=== PATIENT | male | born 1945 | race Caucasian/White ===

== ENCOUNTER 2016-07-05 09:09 | Emergency (ER) | payer OTHER ==
[~2016-07-05] VITALS: Ht 162.6 cm; Wt 83.0 kg
[~2016-07-05 09:09] MED LIST: COLACE100 MG PO; Ceftin PO; Dulcolax PR; FLOMAX0.4 MG PO; FORTICAL,200 INTUNI NS; METAMUCIL1 EACH PO; MIRALAX17 GM PO; OS-CAL 500+D C1 EAC1 PO; SYNTHROID150 MCG PO; Theragran W/Iron,MVI PO; Tylenol Regular Stre PO
[2016-07-05 13:37] VITALS: BP 137/69
== END 2016-07-05 13:37 | disposition home or self-care (01) ==
LOC: EME → EDBD 09:09 → EME 09:09
PROC: 0JQ13ZZ Repair Face Subcutaneous Tissue and Fascia, Percutaneous Approach (ICD-10-PCS; principal; 2016-07-05)
DX: S09.90XA Unspecified injury of head, initial encounter (principal); S01.112A Laceration without foreign body of left eyelid and periocular area, initial encounter; M25.522 Pain in left elbow; M25.532 Pain in left wrist; W17.89XA Other fall from one level to another, initial encounter; F79 Unspecified intellectual disabilities; E03.9 Hypothyroidism, unspecified
CPT/HCPCS: 70450; 72125; 73080; 73110; 99281; 99284

== ENCOUNTER → 2016-12-12 | Outpatient (CLI) | payer OTHER | END | disposition home or self-care (01) | DX: R13.13 Dysphagia, pharyngeal phase (principal); R05 Cough; R63.4 Abnormal weight loss | CPT/HCPCS: 92611 GN; G8996 GN; G8997 GN; G8998 GN ==

== ENCOUNTER → 2017-01-09 | Outpatient (CLI) | payer MEDICARE, OTHER ==
[~2017-01-09] MED LIST changes: +DAILY MULTIVIT1 EAC3 PO; +MYCOSTATIN1 APPLICAT TP; +OYSTERCAL-D 501 EACH PO; +ROBAFEN DM COU118 M1 PO; +SALINE NASAL M126 ML BOTH NARES; +TYLENOL REGULA325 MG PO; -Theragran W/Iron,MVI PO; -Tylenol Regular Stre PO
== END | disposition home or self-care (01) ==
LOC: CDC 08:43
DX: Z01.810 Encounter for preprocedural cardiovascular examination (principal); I49.1 Atrial premature depolarization; R94.31 Abnormal electrocardiogram [ECG] [EKG]
CPT/HCPCS: 93000

== ENCOUNTER 2017-06-10 07:35 | Inpatient (IN) | payer OTHER ==
[~2017-06-10] VITALS: Ht 167.6 cm; Wt 49.0 kg
[2017-06-10] VITALS (9 sets, daily range): BP systolic 90–120; BP diastolic 55–79
[~2017-06-10 07:35] MED LIST changes: +CACARB500L GT; -DAILY MULTIVIT1 EAC3 PO; +DULCOLAX10 MG PR; -Dulcolax PR; +FLOMAX0.4 MG GT; -FLOMAX0.4 MG PO; +MIRALAX17 GM GT; -MIRALAX17 GM PO; +MULTIVITAM9 MG/15 M1 GT; +OCEAN NASAL 0.645 ML BOTH NARES; -OYSTERCAL-D 501 EACH PO; -SALINE NASAL M126 ML BOTH NARES; +SYNTHROID100 MCG GT; +TYLENOL REGULA325 MG GT; -TYLENOL REGULA325 MG PO
[2017-06-10 08:08] LABS: BASE EXCESS -11.7 mEq/L (-3 to +3); BICARBONATE 17.9 mEq/L (22-26); CARBOXY HGB 1.5 % (0-5); COMMENTS - BLOOD GASES A+C+; DEVICE 840 PB; FI02 100 %; MECHANICAL RATE 12 resp/min; METHEMOGLOBIN 1.1 % (0-1.5); MODE AC; O2 FLOW 40 L/MIN; PCO2 55 mm Hg (35-45); PO2 46 mm Hg (80-100); SITE LR; TOTAL RESP RATE 26 resp/min; pH 7.12 (7.35-7.45)
[2017-06-10 08:09] LABS: PEEP 6 CM/H20; TIDAL VOLUME 450 ML
[2017-06-10 08:20] LABS: BASOPHIL (%) 0.3 % (0-1); BASOPHIL COUNT 0.1 K/uL (0-0.1); EOSINOPHIL (%) 3.9 % (0-5); EOSINOPHIL COUNT 0.7 K/uL (0-0.3); HEMOGLOBIN 12.4 G/DL (12.5-16.6); IMMATURE GRANULOCYTE (%) 1.5 % (0.0-0.7); LYMPHOCYTE (%) 31.4 % (15-42); LYMPHOCYTE COUNT 5.8 K/uL (1.0-2.8); MCH 34.1 PG (29.0-34.0); MCHC 32.6 G/DL (30.0-36.0); MCV 104.4 FL (86-99); MONOCYTE (%) 6.2 % (3-12); MONOCYTE COUNT 1.1 K/uL (0-0.8); NEUTROPHIL (%) 56.7 % (45-76); NEUTROPHIL COUNT 10.4 K/uL (1.8-6.4); PLATELET COUNT 303 K/uL (156-360); RBC DIS.WIDTH-CV 13.4 % (11.8-14.6); RBC DIS.WIDTH-SD 52.3 % (39-53); RED BLOOD COUNT 3.64 M/uL (4.00-5.50); WHITE BLOOD COUNT 18.3 K/uL (4.1-10.2)
[2017-06-10 08:25] LABS: INTER. NORMALIZED RATIO 1.1
[2017-06-10 08:28] LABS: PTT 32.5 SEC (25-37)
[2017-06-10 08:29] LABS: CHLORIDE 98 mEq/L (99-109); POTASSIUM 4.9 mEq/L (3.7-5.4); SODIUM 130 mEq/L (136-147)
[2017-06-10 08:30] LABS: GLUCOSE 359 mg/dL (70-99)
[2017-06-10 08:34] LABS: CREATININE 0.8 mg/dL (0.6-1.3); GFR ESTIMATE (CALCULATED) > 59 mL/min/ (58.99-99999)
[2017-06-10 08:35] LABS: UREA NITROGEN (BUN) 35 mg/dL (9-23)
[2017-06-10 08:43] LABS: TROP-I INTERPRETATION NEGATIVE; TROPONIN-I 0.04 ng/mL (0.0-0.30)
[2017-06-10 08:54] LABS: BASE EXCESS -10.1 mEq/L (-3 to +3); BICARBONATE 17.6 mEq/L (22-26); CARBOXY HGB 0.4 % (0-5); METHEMOGLOBIN 0 % (0-1.5); PO2 49 mm Hg (80-100)
[2017-06-10 08:55] LABS: COMMENTS - BLOOD GASES A+C+; DEVICE 840 PB; FI02 100 %; MECHANICAL RATE 10 resp/min; MODE AC; O2 FLOW 40 L/MIN; PCO2 45 mm Hg (35-45); SITE LR; TOTAL RESP RATE 24 resp/min
[2017-06-10 08:56] LABS: PEEP 6 CM/H20; TIDAL VOLUME 450 ML
[2017-06-10 10:07] LABS: BASE EXCESS -2.1 mEq/L (-3 to +3); CARBOXY HGB 2.3 % (0-5); METHEMOGLOBIN 0.9 % (0-1.5); PCO2 41 mm Hg (35-45)
[2017-06-10 10:08] LABS: BICARBONATE 23.2 mEq/L (22-26); COMMENTS - BLOOD GASES A+C+; DEVICE 840 PB; FI02 100 %; MECHANICAL RATE 24 resp/min; MODE AC; O2 FLOW 50 L/MIN; PEEP 8 CM/H20; PO2 84 mm Hg (80-100); SITE LR; TIDAL VOLUME 450 ML; TOTAL RESP RATE 25 resp/min; pH 7.36 (7.35-7.45)
[2017-06-10] MEDS ORDERED: FOLIC ACID1 MG GT (10:20)
[2017-06-10] MEDS ORDERED: FEOSOL300 MG/5 M GT (10:25)
[2017-06-10] MEDS ORDERED: SODIUM CHLORIDE1 G1 GT (10:25)
[2017-06-10 13:27] LABS: BASE EXCESS -4.8 mEq/L (-3 to +3); BICARBONATE 19.2 mEq/L (22-26); CARBOXY HGB 1.4 % (0-5); METHEMOGLOBIN 1.6 % (0-1.5)
[2017-06-10 13:28] LABS: COMMENTS - BLOOD GASES C+; DEVICE VENT; FI02 80 %; MECHANICAL RATE 24 resp/min; MODE AC; PCO2 31 mm Hg (35-45); PEEP 8 CM/H20; PO2 140 mm Hg (80-100); SITE A LINE; TIDAL VOLUME 450 ML; TOTAL RESP RATE 24 resp/min
[2017-06-10 16:02] LABS: INTER. NORMALIZED RATIO 1.2
[2017-06-10 16:05] LABS: PTT 27.2 SEC (25-37)
[2017-06-11] VITALS (9 sets, daily range): BP systolic 55–127; BP diastolic 44–82
[2017-06-11 05:11] LABS: BASOPHIL (%) 0.1 % (0-1); EOSINOPHIL (%) 0.1 % (0-5); HEMATOCRIT 28.9 % (38.0-50.0); IMMATURE GRANULOCYTE (%) 0.5 % (0.0-0.7); LYMPHOCYTE (%) 5.8 % (15-42); LYMPHOCYTE COUNT 0.7 K/uL (1.0-2.8); MCH 33.6 PG (29.0-34.0); MCHC 33.9 G/DL (30.0-36.0); MONOCYTE (%) 6.9 % (3-12); MONOCYTE COUNT 0.8 K/uL (0-0.8); NEUTROPHIL (%) 86.6 % (45-76); NEUTROPHIL COUNT 9.7 K/uL (1.8-6.4); RBC DIS.WIDTH-CV 13.7 % (11.8-14.6); RBC DIS.WIDTH-SD 50.2 % (39-53); RED BLOOD COUNT 2.92 M/uL (4.00-5.50); WHITE BLOOD COUNT 11.2 K/uL (4.1-10.2)
[2017-06-11 05:21] LABS: ALBUMIN 2.7 g/dL (3.2-4.8); POTASSIUM 4.3 mEq/L (3.7-5.4)
[2017-06-11 05:22] LABS: MAGNESIUM 1.7 mg/dL (1.3-2.7)
[2017-06-11 05:23] LABS: CHLORIDE 113 mEq/L (99-109); HEMOGLOBIN 9.8 G/DL (12.5-16.6); SODIUM 139 mEq/L (136-147)
[2017-06-11 05:26] LABS: GLUCOSE 109 mg/dL (70-99); TOTAL BILIRUBIN 1.2 mg/dL (0.0-1.0)
[2017-06-11 05:27] LABS: ALKALINE PHOSPHATASE 90 IU/L (3-129); PHOSPHORUS 3.4 mg/dL (2.5-4.9)
[2017-06-11 05:28] LABS: CREATININE 0.7 mg/dL (0.6-1.3); GFR ESTIMATE (CALCULATED) > 59 mL/min/ (58.99-99999)
[2017-06-11 05:29] LABS: AST (GOT) 103 IU/L (2-34); UREA NITROGEN (BUN) 31 mg/dL (9-23)
[2017-06-11 05:31] LABS: ALT (GPT) 110 IU/L (3-49)
[2017-06-11 05:57] LABS: PLAT.SUFFICIENCY DECREASED
[2017-06-11 05:58] LABS: PLATELET COUNT 146 K/uL (156-360)
[2017-06-11 06:11] LABS: BASE EXCESS -4.3 mEq/L (-3 to +3); CARBOXY HGB 1.5 % (0-5); METHEMOGLOBIN 1.6 % (0-1.5); PCO2 28 mm Hg (35-45); pH 7.44 (7.35-7.45)
[2017-06-11 06:12] LABS: COMMENTS - BLOOD GASES C+; DEVICE VENT; FI02 40 %; MECHANICAL RATE 24 resp/min; MODE AC; PEEP 5 CM/H20; PO2 111 mm Hg (80-100); SITE A-LINE; TIDAL VOLUME 450 ML; TOTAL RESP RATE 24 resp/min
[2017-06-11 06:18] LABS: VANCOMYCIN, TROUGH 8.3 MCG/ML (10-20)
[2017-06-12 01:00] VITALS: BP 128/57
[2017-06-12 02:00] VITALS: BP 101/48
[2017-06-12 04:01] VITALS: BP 99/42
[2017-06-12 05:34] LABS: CHLORIDE 116 MEQ/L (99-109); CREATININE 0.6 MG/DL (0.6-1.3); GFR ESTIMATE (CALCULATED) > 59 mL/min/ (58.99-99999); GLUCOSE 86 mg/dL (70-99); MAGNESIUM 1.7 mg/dl (1.3-2.7); POTASSIUM 3.3 MEQ/L (3.7-5.4); SODIUM 140 MEQ/L (136-147); UREA NITROGEN (BUN) 24 mg/dL (9-23)
[2017-06-12 05:47] LABS: HEMATOCRIT 23.3 % (38.0-50.0); MCH 32.8 PG (29.0-34.0); MCHC 32.6 G/DL (30.0-36.0); MCV 100.4 FL (86-99); RBC DIS.WIDTH-CV 14.3 % (11.8-14.6); RBC DIS.WIDTH-SD 52.6 % (39-53); WHITE BLOOD COUNT 6.3 K/uL (4.1-10.2)
[2017-06-12 05:49] LABS: HEMOGLOBIN 7.6 G/DL (12.5-16.6); PLATELET COUNT 102 K/uL (156-360); RED BLOOD COUNT 2.32 M/uL (4.00-5.50)
[2017-06-12 11:47] LABS: HEMATOLOGY COMMENT 1 SMEAR COMPATIBLE; PLAT.SUFFICIENCY DECREASED
[2017-06-12 14:46] VITALS: BP 115/65
[2017-06-12 16:01] VITALS: BP 115/59
[2017-06-13 08:01] VITALS: BP 108/59
[2017-06-13 09:00] VITALS: BP 108/59
[2017-06-13 09:16] VITALS: BP 110/72
[2017-06-13 09:25] VITALS: BP 110/72
[2017-06-13 12:41] LABS: BASOPHIL (%) 0.3 % (0-1); EOSINOPHIL (%) 0.7 % (0-5); EOSINOPHIL COUNT 0.1 K/uL (0-0.3); HEMATOCRIT 27.9 % (38.0-50.0); HEMOGLOBIN 8.8 G/DL (12.5-16.6); IMMATURE GRANULOCYTE (%) 0.5 % (0.0-0.7); LYMPHOCYTE (%) 9.4 % (15-42); LYMPHOCYTE COUNT 0.8 K/uL (1.0-2.8); MCH 32.8 PG (29.0-34.0); MCHC 31.5 G/DL (30.0-36.0); MCV 104.1 FL (86-99); MONOCYTE (%) 9.8 % (3-12); MONOCYTE COUNT 0.9 K/uL (0-0.8); NEUTROPHIL (%) 79.3 % (45-76); NEUTROPHIL COUNT 6.9 K/uL (1.8-6.4); PLATELET COUNT 125 K/uL (156-360); RBC DIS.WIDTH-CV 14.4 % (11.8-14.6); RED BLOOD COUNT 2.68 M/uL (4.00-5.50); WHITE BLOOD COUNT 8.7 K/uL (4.1-10.2)
[2017-06-13 13:49] LABS: ALBUMIN 2.2 G/DL (3.2-4.8); ALKALINE PHOSPHATASE 70 IU/L (3-129); ALT (GPT) 56 IU/L (3-49); AST (GOT) 31 IU/L (2-34); CHLORIDE 119 MEQ/L (99-109); CREATININE 0.6 MG/DL (0.6-1.3); GFR ESTIMATE (CALCULATED) > 59 mL/min/ (58.99-99999); SODIUM 143 MEQ/L (136-147); TOTAL BILIRUBIN 0.9 MG/DL (0.0-1.0); TOTAL PROTEIN 4.9 G/DL (6.4-8.3); UREA NITROGEN (BUN) 28 mg/dL (9-23)
[2017-06-13 13:53] LABS: GLUCOSE 46 mg/dL (70-99); PHOSPHORUS 3.4 mg/dL (2.5-4.9); POTASSIUM 4.1 MEQ/L (3.7-5.4)
[2017-06-13 15:08] LABS: BASE EXCESS -16.8 mEq/L (-3 to +3); CARBOXY HGB 1.6 % (0-5); METHEMOGLOBIN 1.5 % (0-1.5); PO2 116 mm Hg (80-100)
[2017-06-13 15:09] LABS: BICARBONATE 8.5 mEq/L (22-26); DEVICE 840; FI02 30 %; MODE SPONT; PCO2 19 mm Hg (35-45); PEEP 5 CM/H20; PRES. SUPPORT 10 CM/H2O; SITE R ALINE; TOTAL RESP RATE 30 resp/min; pH 7.26 (7.35-7.45)
[2017-06-13 16:01] VITALS: BP 114/62
[2017-06-14] VITALS (17 sets, daily range): BP systolic 108–140; BP diastolic 54–72
[2017-06-14 06:53] LABS: BASOPHIL (%) 0.2 % (0-1); EOSINOPHIL (%) 0.7 % (0-5); HEMATOCRIT 27.1 % (38.0-50.0); HEMOGLOBIN 9.2 G/DL (12.5-16.6); IMMATURE GRANULOCYTE (%) 0.5 % (0.0-0.7); LYMPHOCYTE COUNT 0.5 K/uL (1.0-2.8); MCH 33.6 PG (29.0-34.0); MCHC 33.9 G/DL (30.0-36.0); MONOCYTE (%) 12.2 % (3-12); MONOCYTE COUNT 0.7 K/uL (0-0.8); NEUTROPHIL (%) 77.4 % (45-76); NEUTROPHIL COUNT 4.6 K/uL (1.8-6.4); PLATELET COUNT 123 K/uL (156-360); RBC DIS.WIDTH-CV 13.8 % (11.8-14.6); RBC DIS.WIDTH-SD 49.6 % (39-53); RED BLOOD COUNT 2.74 M/uL (4.00-5.50); WHITE BLOOD COUNT 5.9 K/uL (4.1-10.2)
[2017-06-14 07:04] LABS: MCV 98.9 FL (86-99)
[2017-06-14 07:18] LABS: ALKALINE PHOSPHATASE 60 IU/L (3-129); ALT (GPT) 43 IU/L (3-49); AST (GOT) 19 IU/L (2-34); CHLORIDE 114 MEQ/L (99-109); CREATININE 0.6 MG/DL (0.6-1.3); GFR ESTIMATE (CALCULATED) > 59 mL/min/ (58.99-99999); MAGNESIUM 1.8 mg/dl (1.3-2.7); PHOSPHORUS 2.3 mg/dL (2.5-4.9); POTASSIUM 3.3 MEQ/L (3.7-5.4); SODIUM 146 MEQ/L (136-147); TOTAL PROTEIN 4.5 G/DL (6.4-8.3); UREA NITROGEN (BUN) 21 mg/dL (9-23)
[2017-06-14 07:23] LABS: GLUCOSE 137 mg/dL (70-99); TOTAL BILIRUBIN 1.2 MG/DL (0.0-1.0)
[2017-06-14 11:37] LABS: BASE EXCESS -0.8 mEq/L (-3 to +3); BICARBONATE 21.8 mEq/L (22-26); COMMENTS - BLOOD GASES VENOUS SAMPLE; PCO2 28 mm Hg (35-45); PO2 < 32 mm Hg (80-100); SITE CENTAL LINE
[2017-06-15] VITALS (23 sets, daily range): BP systolic 84–134; BP diastolic 40–94
[2017-06-15 04:36] LABS: BASOPHIL (%) 0.2 % (0-1); EOSINOPHIL (%) 1.4 % (0-5); EOSINOPHIL COUNT 0.1 K/uL (0-0.3); HEMATOCRIT 24.7 % (38.0-50.0); HEMOGLOBIN 8.7 G/DL (12.5-16.6); IMMATURE GRANULOCYTE (%) 0.3 % (0.0-0.7); LYMPHOCYTE (%) 12.9 % (15-42); LYMPHOCYTE COUNT 0.8 K/uL (1.0-2.8); MCH 33.6 PG (29.0-34.0); MCHC 35.2 G/DL (30.0-36.0); MCV 95.4 FL (86-99); MONOCYTE (%) 9.1 % (3-12); MONOCYTE COUNT 0.5 K/uL (0-0.8); NEUTROPHIL (%) 76.1 % (45-76); NEUTROPHIL COUNT 4.4 K/uL (1.8-6.4); PLATELET COUNT 147 K/uL (156-360); RBC DIS.WIDTH-CV 13.4 % (11.8-14.6); RBC DIS.WIDTH-SD 46.8 % (39-53); RED BLOOD COUNT 2.59 M/uL (4.00-5.50); WHITE BLOOD COUNT 5.8 K/uL (4.1-10.2)
[2017-06-15 04:48] LABS: ALBUMIN 2.1 g/dL (3.2-4.8); CHLORIDE 105 mEq/L (99-109); POTASSIUM 2.6 mEq/L (3.7-5.4); SODIUM 144 mEq/L (136-147)
[2017-06-15 04:50] LABS: GLUCOSE 153 mg/dL (70-99)
[2017-06-15 04:51] LABS: MAGNESIUM 1.1 mg/dL (1.3-2.7); TOTAL PROTEIN 4.1 g/dL (6.4-8.3)
[2017-06-15 04:52] LABS: TOTAL BILIRUBIN 1.3 mg/dL (0.0-1.0)
[2017-06-15 04:54] LABS: ALKALINE PHOSPHATASE 66 IU/L (3-129); CREATININE 0.7 mg/dL (0.6-1.3); GFR ESTIMATE (CALCULATED) > 59 mL/min/ (58.99-99999); PHOSPHORUS 2.7 mg/dL (2.5-4.9)
[2017-06-15 04:55] LABS: UREA NITROGEN (BUN) 17 mg/dL (9-23)
[2017-06-15 04:57] LABS: ALT (GPT) 32 IU/L (3-49); AST (GOT) 13 IU/L (2-34)
[2017-06-15 13:07] LABS: HIGH-SENS C-REACTIVE PROTEIN 6.16 MG/DL (0.02-0.20)
[2017-06-15 13:13] LABS: CHLORIDE 105 MEQ/L (99-109); CREATININE 0.7 MG/DL (0.6-1.3); GFR ESTIMATE (CALCULATED) > 59 mL/min/ (58.99-99999); GLUCOSE 125 mg/dL (70-99); SODIUM 144 MEQ/L (136-147); UREA NITROGEN (BUN) 15 mg/dL (9-23)
[2017-06-15 13:24] LABS: POTASSIUM 3.5 MEQ/L (3.7-5.4)
[2017-06-16] VITALS (19 sets, daily range): BP systolic 91–128; BP diastolic 51–86
[2017-06-16 06:26] LABS: BASOPHIL (%) 0.2 % (0-1); EOSINOPHIL (%) 3.2 % (0-5); EOSINOPHIL COUNT 0.2 K/uL (0-0.3); HEMATOCRIT 24.3 % (38.0-50.0); HEMOGLOBIN 8.2 G/DL (12.5-16.6); IMMATURE GRANULOCYTE (%) 0.5 % (0.0-0.7); LYMPHOCYTE (%) 12.3 % (15-42); LYMPHOCYTE COUNT 0.8 K/uL (1.0-2.8); MCH 33.3 PG (29.0-34.0); MCHC 33.7 G/DL (30.0-36.0); MCV 98.8 FL (86-99); MONOCYTE (%) 11.9 % (3-12); MONOCYTE COUNT 0.8 K/uL (0-0.8); NEUTROPHIL (%) 71.9 % (45-76); NEUTROPHIL COUNT 4.7 K/uL (1.8-6.4); NRBC (%) 0.3 /100 WBC (0-0); PLATELET COUNT 124 K/uL (156-360); RBC DIS.WIDTH-CV 13.9 % (11.8-14.6); RBC DIS.WIDTH-SD 50.4 % (39-53); RED BLOOD COUNT 2.46 M/uL (4.00-5.50); WHITE BLOOD COUNT 6.6 K/uL (4.1-10.2)
[2017-06-16 06:49] LABS: ALBUMIN 2.2 G/DL (3.2-4.8); ALKALINE PHOSPHATASE 54 IU/L (3-129); ALT (GPT) 20 IU/L (3-49); AST (GOT) 13 IU/L (2-34); CHLORIDE 103 MEQ/L (99-109); CREATININE 0.7 MG/DL (0.6-1.3); GFR ESTIMATE (CALCULATED) > 59 mL/min/ (58.99-99999); MAGNESIUM 1.6 mg/dl (1.3-2.7); PHOSPHORUS 3.1 mg/dL (2.5-4.9); POTASSIUM 3.7 MEQ/L (3.7-5.4); SODIUM 141 MEQ/L (136-147); TOTAL PROTEIN 4.4 G/DL (6.4-8.3); UREA NITROGEN (BUN) 13 mg/dL (9-23)
[2017-06-16 06:51] LABS: GLUCOSE 86 mg/dL (70-99); TOTAL BILIRUBIN 0.8 MG/DL (0.0-1.0)
[2017-06-16 13:13] LABS: HIGH-SENS C-REACTIVE PROTEIN > 8.00 MG/DL (0.02-0.20)
[2017-06-16 14:04] LABS: BASE EXCESS 8.5 mEq/L (-3 to +3); CARBOXY HGB 1.8 % (0-5); METHEMOGLOBIN 1.5 % (0-1.5); pH 7.55 (7.35-7.45)
[2017-06-16 14:05] LABS: BICARBONATE 31.5 mEq/L (22-26); COMMENTS - BLOOD GASES A+C+; DEVICE VENT; FI02 40 %; MODE SPONT; PCO2 36 mm Hg (35-45); PEEP 5 CM/H20; PO2 70 mm Hg (80-100); PRES. SUPPORT 8 CM/H2O; SITE RIGHT RAD; TOTAL RESP RATE 24 resp/min
[2017-06-17] VITALS (12 sets, daily range): BP systolic 94–120; BP diastolic 41–91
[2017-06-17 06:19] LABS: BASOPHIL (%) 0.1 % (0-1); EOSINOPHIL (%) 5.6 % (0-5); EOSINOPHIL COUNT 0.4 K/uL (0-0.3); HEMATOCRIT 25.2 % (38.0-50.0); HEMOGLOBIN 8.3 G/DL (12.5-16.6); IMMATURE GRANULOCYTE (%) 0.5 % (0.0-0.7); LYMPHOCYTE (%) 13.1 % (15-42); MCH 32.2 PG (29.0-34.0); MCHC 32.9 G/DL (30.0-36.0); MCV 97.7 FL (86-99); MONOCYTE (%) 10.9 % (3-12); MONOCYTE COUNT 0.8 K/uL (0-0.8); NEUTROPHIL (%) 69.8 % (45-76); NEUTROPHIL COUNT 5.1 K/uL (1.8-6.4); PLATELET COUNT 173 K/uL (156-360); RBC DIS.WIDTH-CV 13.9 % (11.8-14.6); RBC DIS.WIDTH-SD 49.1 % (39-53); RED BLOOD COUNT 2.58 M/uL (4.00-5.50); WHITE BLOOD COUNT 7.3 K/uL (4.1-10.2)
[2017-06-17 07:31] LABS: ALKALINE PHOSPHATASE 51 IU/L (3-129); ALT (GPT) 17 IU/L (3-49); AST (GOT) 13 IU/L (2-34); CHLORIDE 96 MEQ/L (99-109); CREATININE 0.8 MG/DL (0.6-1.3); GFR ESTIMATE (CALCULATED) > 59 mL/min/ (58.99-99999); GLUCOSE 75 mg/dL (70-99); PHOSPHORUS 3.7 mg/dL (2.5-4.9); POTASSIUM 3.1 MEQ/L (3.7-5.4); SODIUM 139 MEQ/L (136-147); TOTAL BILIRUBIN 0.9 MG/DL (0.0-1.0); UREA NITROGEN (BUN) 14 mg/dL (9-23)
[2017-06-17 07:33] LABS: MAGNESIUM 1.9 mg/dl (1.3-2.7)
[2017-06-17 15:25] LABS: BASE EXCESS 10.2 mEq/L (-3 to +3); CARBOXY HGB 0.3 % (0-5); METHEMOGLOBIN 0 % (0-1.5); PCO2 36 mm Hg (35-45)
[2017-06-17 15:27] LABS: COMMENTS - BLOOD GASES A+C+; DEVICE VENT; FI02 30 %; MODE SPONT; PO2 48 mm Hg (80-100); PRES. SUPPORT 8 CM/H2O; SITE LRAD; TOTAL RESP RATE 26 resp/min; pH 7.57 (7.35-7.45)
[2017-06-17 20:27] LABS: C DIFF TOXIN POSITIVE (NEGATIVE)
[2017-06-18] VITALS (15 sets, daily range): BP systolic 103–126; BP diastolic 51–83
[2017-06-18 06:54] LABS: BASOPHIL (%) 0.1 % (0-1); EOSINOPHIL (%) 5.9 % (0-5); EOSINOPHIL COUNT 0.4 K/uL (0-0.3); HEMATOCRIT 26.9 % (38.0-50.0); HEMOGLOBIN 8.7 G/DL (12.5-16.6); IMMATURE GRANULOCYTE (%) 0.4 % (0.0-0.7); LYMPHOCYTE (%) 11.5 % (15-42); LYMPHOCYTE COUNT 0.8 K/uL (1.0-2.8); MCH 32.1 PG (29.0-34.0); MCHC 32.3 G/DL (30.0-36.0); MCV 99.3 FL (86-99); MONOCYTE (%) 11.9 % (3-12); MONOCYTE COUNT 0.9 K/uL (0-0.8); NEUTROPHIL (%) 70.2 % (45-76); NEUTROPHIL COUNT 5.1 K/uL (1.8-6.4); PLATELET COUNT 183 K/uL (156-360); RBC DIS.WIDTH-CV 14.1 % (11.8-14.6); RBC DIS.WIDTH-SD 51.2 % (39-53); RED BLOOD COUNT 2.71 M/uL (4.00-5.50); WHITE BLOOD COUNT 7.3 K/uL (4.1-10.2)
[2017-06-18 07:29] LABS: ALBUMIN 2.8 G/DL (3.2-4.8); ALKALINE PHOSPHATASE 52 IU/L (3-129); ALT (GPT) 15 IU/L (3-49); AST (GOT) 12 IU/L (2-34); CHLORIDE 99 MEQ/L (99-109); CREATININE 0.8 MG/DL (0.6-1.3); GFR ESTIMATE (CALCULATED) > 59 mL/min/ (58.99-99999); GLUCOSE 83 mg/dL (70-99); MAGNESIUM 1.9 mg/dl (1.3-2.7); PHOSPHORUS 2.7 mg/dL (2.5-4.9); SODIUM 141 MEQ/L (136-147); TOTAL PROTEIN 4.9 G/DL (6.4-8.3); UREA NITROGEN (BUN) 17 mg/dL (9-23)
[2017-06-18 07:32] LABS: POTASSIUM 3.8 MEQ/L (3.7-5.4); TOTAL BILIRUBIN 0.7 MG/DL (0.0-1.0)
[2017-06-19] VITALS (16 sets, daily range): BP systolic 94–133; BP diastolic 53–75
[2017-06-19 05:55] LABS: BASOPHIL (%) 0.2 % (0-1); EOSINOPHIL (%) 5.5 % (0-5); EOSINOPHIL COUNT 0.5 K/uL (0-0.3); HEMATOCRIT 26.3 % (38.0-50.0); HEMOGLOBIN 8.6 G/DL (12.5-16.6); IMMATURE GRANULOCYTE (%) 0.6 % (0.0-0.7); LYMPHOCYTE (%) 11.6 % (15-42); LYMPHOCYTE COUNT 1.1 K/uL (1.0-2.8); MCH 32.5 PG (29.0-34.0); MCHC 32.7 G/DL (30.0-36.0); MCV 99.2 FL (86-99); MONOCYTE (%) 10.5 % (3-12); NEUTROPHIL (%) 71.6 % (45-76); NEUTROPHIL COUNT 6.7 K/uL (1.8-6.4); PLATELET COUNT 218 K/uL (156-360); RBC DIS.WIDTH-CV 13.7 % (11.8-14.6); RBC DIS.WIDTH-SD 49.3 % (39-53); RED BLOOD COUNT 2.65 M/uL (4.00-5.50); WHITE BLOOD COUNT 9.3 K/uL (4.1-10.2)
[2017-06-19 06:19] LABS: ALBUMIN 3.1 G/DL (3.2-4.8); ALKALINE PHOSPHATASE 48 IU/L (3-129); ALT (GPT) 13 IU/L (3-49); AST (GOT) 11 IU/L (2-34); CHLORIDE 102 MEQ/L (99-109); CREATININE 0.8 MG/DL (0.6-1.3); GFR ESTIMATE (CALCULATED) > 59 mL/min/ (58.99-99999); GLUCOSE 109 mg/dL (70-99); MAGNESIUM 1.9 mg/dl (1.3-2.7); PHOSPHORUS 1.7 mg/dL (2.5-4.9); POTASSIUM 3.5 MEQ/L (3.7-5.4); SODIUM 143 MEQ/L (136-147); TOTAL BILIRUBIN 0.6 MG/DL (0.0-1.0); UREA NITROGEN (BUN) 21 mg/dL (9-23)
[2017-06-19 19:52] LABS: HIGH-SENS C-REACTIVE PROTEIN 4.98 MG/DL (0.02-0.20)
[2017-06-20] VITALS (9 sets, daily range): BP systolic 120–155; BP diastolic 67–92
[2017-06-20 06:37] LABS: BASOPHIL (%) 0.2 % (0-1); EOSINOPHIL (%) 6.3 % (0-5); EOSINOPHIL COUNT 0.8 K/uL (0-0.3); HEMATOCRIT 29.7 % (38.0-50.0); HEMOGLOBIN 9.9 G/DL (12.5-16.6); IMMATURE GRANULOCYTE (%) 0.7 % (0.0-0.7); LYMPHOCYTE (%) 9.3 % (15-42); LYMPHOCYTE COUNT 1.2 K/uL (1.0-2.8); MCH 32.9 PG (29.0-34.0); MCHC 33.3 G/DL (30.0-36.0); MCV 98.7 FL (86-99); MONOCYTE (%) 8.5 % (3-12); MONOCYTE COUNT 1.1 K/uL (0-0.8); NEUTROPHIL COUNT 9.7 K/uL (1.8-6.4); PLATELET COUNT 260 K/uL (156-360); RBC DIS.WIDTH-SD 50.8 % (39-53); RED BLOOD COUNT 3.01 M/uL (4.00-5.50); WHITE BLOOD COUNT 12.9 K/uL (4.1-10.2)
[2017-06-20 07:10] LABS: ALBUMIN 3.2 G/DL (3.2-4.8); ALKALINE PHOSPHATASE 55 IU/L (3-129); ALT (GPT) 12 IU/L (3-49); AST (GOT) 12 IU/L (2-34); CHLORIDE 106 MEQ/L (99-109); CREATININE 0.8 MG/DL (0.6-1.3); GFR ESTIMATE (CALCULATED) > 59 mL/min/ (58.99-99999); GLUCOSE 114 mg/dL (70-99); MAGNESIUM 1.9 mg/dl (1.3-2.7); PHOSPHORUS 1.8 mg/dL (2.5-4.9); POTASSIUM 3.6 MEQ/L (3.7-5.4); SODIUM 143 MEQ/L (136-147); TOTAL BILIRUBIN 0.6 MG/DL (0.0-1.0); UREA NITROGEN (BUN) 23 mg/dL (9-23)
[2017-06-20 07:11] LABS: TOTAL PROTEIN 5.9 G/DL (6.4-8.3)
[2017-06-20 07:53] LABS: HIGH-SENS C-REACTIVE PROTEIN 3.88 MG/DL (0.02-0.20)
[2017-06-21] VITALS (14 sets, daily range): BP systolic 97–160; BP diastolic 49–80
[2017-06-21 07:05] LABS: ALBUMIN 3.4 G/DL (3.2-4.8); ALKALINE PHOSPHATASE 61 IU/L (3-129); ALT (GPT) 20 IU/L (3-49); CHLORIDE 104 MEQ/L (99-109); CREATININE 0.8 MG/DL (0.6-1.3); GFR ESTIMATE (CALCULATED) > 59 mL/min/ (58.99-99999); POTASSIUM 3.9 MEQ/L (3.7-5.4); SODIUM 140 MEQ/L (136-147); TOTAL PROTEIN 6.3 G/DL (6.4-8.3); UREA NITROGEN (BUN) 21 mg/dL (9-23)
[2017-06-21 07:06] LABS: BASOPHIL (%) 0.3 % (0-1); EOSINOPHIL (%) 4.4 % (0-5); EOSINOPHIL COUNT 0.7 K/uL (0-0.3); HEMATOCRIT 32.2 % (38.0-50.0); HEMOGLOBIN 10.8 G/DL (12.5-16.6); IMMATURE GRANULOCYTE (%) 0.9 % (0.0-0.7); LYMPHOCYTE (%) 9.5 % (15-42); LYMPHOCYTE COUNT 1.4 K/uL (1.0-2.8); MCH 32.6 PG (29.0-34.0); MCHC 33.5 G/DL (30.0-36.0); MCV 97.3 FL (86-99); MONOCYTE (%) 9.1 % (3-12); MONOCYTE COUNT 1.3 K/uL (0-0.8); NEUTROPHIL (%) 75.8 % (45-76); NEUTROPHIL COUNT 11.2 K/uL (1.8-6.4); PLATELET COUNT 299 K/uL (156-360); RBC DIS.WIDTH-CV 13.9 % (11.8-14.6); RBC DIS.WIDTH-SD 49.5 % (39-53); RED BLOOD COUNT 3.31 M/uL (4.00-5.50); WHITE BLOOD COUNT 14.7 K/uL (4.1-10.2)
[2017-06-21 07:10] LABS: AST (GOT) 35 IU/L (2-34); GLUCOSE 75 mg/dL (70-99); PHOSPHORUS 2.9 mg/dL (2.5-4.9); TOTAL BILIRUBIN 0.8 MG/DL (0.0-1.0)
[2017-06-21 12:27] LABS: CARBOXY HGB 2.7 % (0-5); COMMENTS - BLOOD GASES NAC+; DEVICE NRBM; METHEMOGLOBIN 1.7 % (0-1.5); O2 FLOW 15 L/MIN; PCO2 109 mm Hg (35-45); PO2 71 mm Hg (80-100); SITE LB; TOTAL RESP RATE 27 resp/min
[2017-06-21 12:28] LABS: pH < 6.92 (7.35-7.45)
[2017-06-21 12:32] LABS: HEMATOCRIT 35.7 % (38.0-50.0); MCH 32.9 PG (29.0-34.0); MCHC 30.8 G/DL (30.0-36.0); NRBC (%) 0.2 /100 WBC (0-0); RBC DIS.WIDTH-CV 14.3 % (11.8-14.6); RBC DIS.WIDTH-SD 56.2 % (39-53); RED BLOOD COUNT 3.34 M/uL (4.00-5.50)
[2017-06-21 12:33] LABS: MCV 106.9 FL (86-99); PLATELET COUNT 470 K/uL (156-360); WHITE BLOOD COUNT 31.9 K/uL (4.1-10.2)
[2017-06-21 13:07] LABS: CARBOXY HGB 2.2 % (0-5); DEVICE N/V AC; FI02 100 %; MECHANICAL RATE 30 resp/min; MODE AC; PCO2 119 mm Hg (35-45); PEEP 8 CM/H20; PO2 252 mm Hg (80-100); SITE RR; TIDAL VOLUME 500 ML; TOTAL RESP RATE 30 resp/min; pH < 6.92 (7.35-7.45)
[2017-06-21 13:08] LABS: COMMENTS - BLOOD GASES A+C+
[2017-06-21 14:23] LABS: TROP-I INTERPRETATION NEGATIVE; TROPONIN-I 0.05 ng/mL (0.0-0.30)
[2017-06-21 14:37] LABS: ALBUMIN 3.3 G/DL (3.2-4.8); CHLORIDE 106 MEQ/L (99-109); CREATINE KINASE 35 IU/L (1-294); CREATININE 1.1 MG/DL (0.6-1.3); GFR ESTIMATE (CALCULATED) > 59 mL/min/ (58.99-99999); HIGH-SENS C-REACTIVE PROTEIN 2.89 MG/DL (0.02-0.20); MAGNESIUM 2.3 mg/dl (1.3-2.7); SODIUM 139 MEQ/L (136-147); TOTAL BILIRUBIN 0.8 MG/DL (0.0-1.0); TOTAL PROTEIN 6.5 G/DL (6.4-8.3); UREA NITROGEN (BUN) 24 mg/dL (9-23)
[2017-06-21 14:38] LABS: ALKALINE PHOSPHATASE 224 IU/L (3-129); ALT (GPT) 63 IU/L (3-49); AST (GOT) 239 IU/L (2-34); GLUCOSE 228 mg/dL (70-99); PHOSPHORUS 7.1 mg/dL (2.5-4.9); POTASSIUM 4.8 MEQ/L (3.7-5.4)
[2017-06-22 09:06] VITALS: BP 95/52
== END 2017-06-23 00:15 | DRG 870 ==
LOC: EME → EDBD 07:35 → EME 07:35 → EDOF 10:07 → 4WEST 10:07 → ENRESERV 10:10 → EDOF 10:15 → 4WEST 11:05 → ENRESERV 06-20 11:31 → 4WEST 06-20 12:46 → ENRESERV 06-20 14:36 → 5SOUTH 06-20 15:45 → ENRESERV 06-21 12:35 → 5SOUTH 06-21 12:35 → 4WEST 06-21 12:44 → ENRESERV 06-21 20:52 → 4EAST 06-21 23:12 → ENRESERV 06-22 → 5EAST 06-22 17:03
PROVIDERS: Emergency Medicine; Hospitalist; Internal Medicine; Physician Assistant Medical; Specialist; Surgery
PROC: 5A1955Z Respiratory Ventilation, Greater than 96 Consecutive Hours (ICD-10-PCS; principal; 2017-06-10)
PROC: 0BH17EZ Insertion of Endotracheal Airway into Trachea, Via Natural or Artificial Opening (ICD-10-PCS; 2017-06-10)
PROC: 06HM33Z Insertion of Infusion Device into Right Femoral Vein, Percutaneous Approach (ICD-10-PCS; 2017-06-10)
PROC: 04HY32Z Insertion of Monitoring Device into Lower Artery, Percutaneous Approach (ICD-10-PCS; 2017-06-10)
PROC: 04HY32Z Insertion of Monitoring Device into Lower Artery, Percutaneous Approach (ICD-10-PCS; 2017-06-11)
PROC: 02HV33Z Insertion of Infusion Device into Superior Vena Cava, Percutaneous Approach (ICD-10-PCS; 2017-06-14)
PROC: B543ZZA Ultrasonography of Right Jugular Veins, Guidance (ICD-10-PCS; 2017-06-14)
DX: A41.9 Sepsis, unspecified organism (principal); R65.21 Severe sepsis with septic shock; J15.1 Pneumonia due to Pseudomonas; J96.01 Acute respiratory failure with hypoxia; J96.02 Acute respiratory failure with hypercapnia; T81.82XA Emphysema (subcutaneous) resulting from a procedure, initial encounter; K66.8 Other specified disorders of peritoneum; T88.4XXA Failed or difficult intubation, initial encounter; Y84.8 Other medical procedures as the cause of abnormal reaction of the patient, or of later complication, without mention of misadventure at the time of the procedure; E87.2 Acidosis; A04.72 Enterocolitis due to Clostridium difficile, not specified as recurrent; I63.9 Cerebral infarction, unspecified; R40.20 Unspecified coma; G83.89 Other specified paralytic syndromes; Z51.5 Encounter for palliative care; Z66 Do not resuscitate; K56.41 Fecal impaction; E03.9 Hypothyroidism, unspecified; I48.91 Unspecified atrial fibrillation; F72 Severe intellectual disabilities; R62.7 Adult failure to thrive; Z68.1 Body mass index [BMI] 19.9 or less, adult; Z85.528 Personal history of other malignant neoplasm of kidney; Z87.11 Personal history of peptic ulcer disease; Z93.1 Gastrostomy status
CPT/HCPCS: 36600; 71045; 71260; 71275; 74018; 74177; 74220; 80047; 80048; 80048 91; 80053; 80202; 82550; 82803; 82948; 83605; 83735; 83880; 84100; 84145 90; 84443; 84484; 85025; 85025 91; 85027; 85610; 85730; 86141; 87040; 87070; 87077; 87186; 87205; 87493; 87502; 87641; 87801; 93005; 94002; 94003; 94640; 94640 76; 94760; 94799; 99202; 99281; 99285; C1751; C9113; J0330; J0692; J1650; J1720; J1940; J2060; J2250; J2543; J2704; J3010; J3370; J3475; J3480; J7030; J7040; J7050; J7070; P9045; P9047; S0028; S0030